=== PATIENT | female | born 1960 | race Caucasian/White ===

== ENCOUNTER 2019-12-27 10:20 | Outpatient (CLI) | payer MEDICARE, MEDICAID, SELFPAY ==
--- NOTE | 2019-12-27 10:27 | MM_ITS ---
WS: [id number] BILATERAL DIGITAL DIAGNOSTIC MAMMOGRAM MAMMOGRAPHY WITH CAD CLINICAL INFORMATION: 3 MO F/U BREAST LESION HISTORY: COMPARISON: May 01, 2019 TECHNIQUE: Bilateral CC, MLO, and ML views. FINDINGS: The breasts are composed of heterogeneous fibroglandular density, which can limit the detection of sm all underlying mass lesions. Stable appearing dense subareolar breast tissue. Stable partially obscur ed breast lesion measuring 1.7 x 1.9 CM. Punctate calcifications. Vascular calcifications. Ultrasound is pending. ULTRASOUND BREAST RIGHT TECHNIQUE: Ultrasound right breast focused area of concern. CLINICAL INFORMATION: 3 MO F/U BREAST LESION COMPARISON: 05/01 and 03/14 2019 FINDINGS: Ultrasound right breast at the 9:00 position 2 cm from the nipple. No evidence of underlying patholog ic mass or lesion. Dense underlying breast tissue similar in appearance to May 01, 2019. Recomme nd additional six-month follow-up to ensure stability MM/[place] [id number] IMPRESSION: BI-RADS: 3-Probably Benign FOLLOW UP: 6 Month Follow-up Recommend 6 month follow-up right diagnostic mammography and ultrasound
== END 2019-12-27 10:21 | disposition home or self-care (01) ==
LOC: RADSHAW 10:25
PROVIDERS: PCP Family Medicine; Visit Provider Family Medicine
DX: N64.89 Other specified disorders of breast (principal)
CPT/HCPCS: 76642; 77066